=== PATIENT | male | born 1965 | race Caucasian/White ===

== ENCOUNTER → 2016-11-11 | Outpatient (CLI) | payer MEDICARE, OTHER ==
[~2016-11-11] MED LIST: 3N1 COMMODE MC; ASPI-781 PO; BEN25 PO; BISA10SU75 PR; DOCU-144 PO; Escitalopram Oxalate PO; NA P133E3 PR; OXYC-481 PO; RANI150T9 PO; TOPI25TA38 PO; TRAM50TA2 PO; WALK1EAC23 MC
--- NOTE | 2016-11-12 09:23 | RADRPT ---
PROCEDURE: XR pelvis/right hip. CLINICAL INDICATION: Hip pain TECHNIQUE: AP pelvis/AP and lateral right hip view performed. COMPARISON: 04/08/2016 FINDINGS: There is a right total hip replacement. There is no evidence of loosening of the prosthesis. No hard wells failure is identified. There is mild left hip osteoarthrosis. This is associated with joint space narrowing, subchondral sc lerosis and osteophytosis. There is normal osseous mineralization. No fractures or osseous lesions are identified. The soft tissues are unremarkable. IMPRESSION: Right total hip replacement. Mild left hip osteoarthrosis. RPTAT: [facility] .Steve Noguera MD, MD Date Time Electronically viewed and signed by .Steve Noguera MD, on 11/12/2016 09:23 .B/
== END | disposition home or self-care (01) ==
LOC: HKI 08:41
PROVIDERS: ATTEND Orthopaedic Surgery
DX: Z47.89 Encounter for other orthopedic aftercare (principal); Z96.641 Presence of right artificial hip joint
CPT/HCPCS: 73502; G0463